=== PATIENT | female | born 1985 | race Asian ===

== ENCOUNTER 2016-09-22 10:06 | Emergency (ER) | payer OTHER ==
--- NOTE | 2016-09-22 10:26 | ED Physician Chart ---
Chief Complaint/HPI - Patient Information Date Seen:: 09/22/16 Time Seen:: 10:15 Chief Complaint:: needle stick History of Present Illness:: After drawing blood from emergency department patient [employer] employee when disposing of the needle stuck her right long finger. 1-2 drops of blood came out. Patient is right-hand dominant. Patient is up-to-date on her tetanus immunization and is also received hepatitis B vaccine. Allergies:: Allergies Allergy/AdvReac Type Severity Reaction Status Date / Time No Known Allergies Allergy Verified 09/22/16 10:11 Vitals:: Vital Signs - 8 hr 09/22/16 09/22/16 10:07 10:16 Temp 97.9 F 97.9 F HR 98 98 RR 16 16 BP 117/76 117/76 O2 Sat % 100 100 Historian:: Patient Review:: Nurse's Note Reviewed Review of Systems - Review of Systems General/Constitutional: No fever, No chills Skin: Other (needle stick right long finger) Head: No headache Eyes: No loss of vision ENT: No earache Neck: No neck pain Cardio Vascular: No chest pain, No palpitations Pulmonary: No SOB GI: No nausea, No vomiting G/U: No dysuria Musculoskeletal: No bone or joint pain, No muscle pain Endocrine: No polyuria, No polydipsia Psychiatric: No prior psych history, No depression Hematopoietic: No bruising Allergic/Immuno: No urticaria Neurological: No syncope Past Medical History - Past Medical History Past Medical History: No significant medical hx Family History: None Social History: Non Smoker, No Alcohol Surgical History: None Psychiatricy History: None Medication: None Family Medical History - Family Member Mother Other Medical History: denies family medical hx Physical Exam - Physical Examination General/Constitutional: Well-developed, well-nourished, Alert, No distress Head: Atraumatic Eyes: Lids, conjuctiva normal, PERRL Other Skin comments:: Puncture wound volar distal interphalangeal joint right long finger ENMT: External ears, nose nl Neck: No nuchal rigidity Respiratory: Nl effort/Exclusion, Clear to Auscultation Cardio Vascular: RRR GI: No tenderness/rebounding/guarding : No CVA tenderness Extremities: Normal digits & nails Neuro/Psych: No focal deficits Misc: Normal back ED Septic Shock - . Is Septic Shock (SBP<90, OR Lactate>4 mmol\L) present?: No - <6hrs of presentation: Vital Signs: Vital Signs - 8 hr 09/22/16 09/22/16 10:07 10:16 Temp 97.9 F 97.9 F HR 98 98 RR 16 16 BP 117/76 117/76 O2 Sat % 100 100 Reassessment (Disposition) - Reassessment Reassessment Condition:: Unchanged - Diagnosis Diagnosis:: Contaminated needlestick - Aftercare/Follow up Instructions Aftercare/Follow-Up Instructions:: Refer to Discharge Instructions - Patient Disposition Discharge/Transfer:: Home Condition at Disposition:: Stable, Unchanged
[2016-09-23 13:11] LABS: HEP B CORE AB TOTAL Positive (Negative); HEP B SURFACE AB QL Reactive; HEP C ANTIBODY <0.1 s/co ratio (0.0-0.9)
== END 2016-09-22 11:40 | disposition home or self-care (01) ==
LOC: EEVIPCON 10:06 → ER 10:06
DX: S61.232A Puncture wound without foreign body of right middle finger without damage to nail, initial encounter (principal); W46.1XXA Contact with contaminated hypodermic needle, initial encounter; Y93.89 Activity, other specified; Y92.89 Other specified places as the place of occurrence of the external cause; Y99.8 Other external cause status
CPT/HCPCS: 36415-UA; 86703-TC; 86704-90; 86706-90; 86803-90; 87340-90; 87389-90; Z7502